=== PATIENT | female | born 1980 | race Caucasian/White ===

== ENCOUNTER → 2016-05-30 | Outpatient (CLI) | payer MEDICAID ==
--- NOTE | 2016-05-30 11:46 | MR ---
MRI CERVICAL SPINE: CLINICAL HISTORY: Cervicalgia per order. Headache with neck pain causing right shoulder pain and pain or weakness and fingers for 3 months per patient. TECHNIQUE: Multiplanar, multisequence imaging of the cervical spine is performed without IV contrast. COMPARISON: None. FINDINGS: Exam is suboptimal as is degraded by patient motion. Sagittal images of the cervical spine show the craniocervical junction to appear within normal limits. The cervical and upper thoracic spi nal cord is normal in course, caliber, and signal. Vertebral alignment is straightened. The vertebr al body and intravertebral disk heights are normal. Small posterior disc herniations are seen at C5-C 6 and C6-C7 levels on sagittal images. The bone marrow signal intensity is within normal limits. No s ignificant spurring is seen. Axial images show the C2-C3, C3-C4, and C4-C5 levels all to appear within normal limits. Axial images at the C5-C6 level show broad-based posterior disc protrusion mildly effacing anterior t hecal sac, bilateral neural foramina are patent. Axial images at C6-C7 level show slightly more prominent lobulated related broad-based disc protrusio n effacing anterior thecal sac and causing asymmetric moderate right-sided neural foraminal narrowing . Finding is confirmed on sagittal image 8. Left-sided neural foramen is patent. Axial images at C7-T1 level are felt within normal limits. 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 Note is made of asymmetric moderate right-sided neural foraminal narrowing C6-C7 level due to eccentric disc herniation
== END | disposition home or self-care (01) ==
LOC: RADMRIMAIN 10:59
PROVIDERS: ATTEND Family Medicine
DX: M50.222 Other cervical disc displacement at C5-C6 level (principal); M50.223 Other cervical disc displacement at C6-C7 level; M99.71 Connective tissue and disc stenosis of intervertebral foramina of cervical region
CPT/HCPCS: 72141

== ENCOUNTER → 2016-07-13 | Outpatient (CLI) | payer MEDICAID ==
[2016-07-13 10:06] LABS: Basophils # (A) 0.2 k/uL (0-0.2); Basophils % (A) 1 %; CH 29.8; CHCM 33.4; Eosinophils # (A) 0.1 k/uL (0-0.7); Eosinophils % (A) 1 %; HCT 44.6 % (34.0-46.0); HDW 2.98; HGB 14.2 gm/dL (11.4-16.0); Luc # (Auto) 0.15; Luc % (Auto) 1; Lymphocytes # (A) 1.8 k/uL (1.0-4.8); Lymphocytes % (A) 16 %; MCH 28.6 pg (25.0-35.0); MCHC 31.8 g/dL (31.0-37.0); MCV 89.9 fL (80.0-100.0); Mean Platelet Volume 9.1; Monocytes # (A) 0.7 k/uL (0-1.0); Monocytes % (A) 6 %; Neutrophils # (A) 8.3 k/uL (1.3-7.7); Neutrophils % (A) 74 %; RBC 4.96 m/uL (3.80-5.40); RDW 13.3 % (11.5-15.5); WBC 11.1 k/uL (3.8-10.6); WBC (Perox) 11.13
[2016-07-13 10:17] LABS: ALT 32 U/L (9-52); AST 17 U/L (14-36); Alkaline Phosphatase 62 U/L (38-126); Anion Gap 13 mmol/L; Blood Urea Nitrogen 14 mg/dL (7-17); Calcium 10.1 mg/dL (8.4-10.2); Carbon Dioxide 27 mmol/L (22-30); Chloride 104 mmol/L (98-107); Glucose 91 mg/dL (74-99); Non-African American GFR(MDRD) >60 (>60 ml/min/1.73 sqM); Partial Thromboplastin Time 24.5 sec (22.0-30.0); Prothrombin Time 10.5 sec (9.0-12.0); Sodium 144 mmol/L (137-145); Total Bilirubin 0.4 mg/dL (0.2-1.3); Total Protein 8.2 g/dL (6.3-8.2)
[2016-07-13 10:28] LABS: Appearance,Urine Cloudy (Clear); Bacteria,Urine Rare /hpf; Bilirubin,Urine Negative (Negative); Glucose,Urine (UA) Negative (Negative); Ketones,Urine Negative (Negative); Leukocyte Esterase,Urine Negative (Negative); Mucus,Urine Rare /hpf; Nitrite,Urine Negative (Negative); PH, Urine 6.5 (5.0-8.0); Particle Count 10025; Protein,Urine Negative (Negative); Specific Gravity,Urine 1.017 (1.001-1.035); Squamous Epithelial Cell,Urine 6 /hpf (0-4); UA Billing (MACRO vs. MICRO) MICRO; Urobilinogen,Urine <2.0 mg/dL (<2.0); WBC,Urine 2 /hpf (0-5)
== END | disposition home or self-care (01) ==
LOC: LABWHC1 09:19
DX: Z01.818 Encounter for other preprocedural examination (principal); M50.90 Cervical disc disorder, unspecified, unspecified cervical region
CPT/HCPCS: 36415; 80053; 81001; 85025; 85610; 85730